=== PATIENT | female | born 1960 | race African-American/Black ===

== ENCOUNTER 2016-05-27 11:26 | Emergency (ER) | payer MEDICAID ==
[~2016-05-27] VITALS: Ht 172.7 cm; Wt 84.4 kg
[2016-05-27 11:26] VITALS: BP 140/90; PULSE 98; RESP 18; TEMP 98.2; O2SAT 98
--- NOTE | 2016-05-27 11:55 | NUR ---
Pt brought by ambulance from [facility], pt c/o generalized itching and pain due to bedbugs, pt was treated this morning with benadryl with no success, skin pink and warm,bites noted, ambulatory.
--- NOTE | 2016-05-27 12:30 | NUR ---
Pt report received from MARIA ISABEL Lynn. Pt c/o bed bug bites. Bites noted in small clusters generalized to all extremities. No bugs visible on skin. No drainage to sites.
--- NOTE | 2016-05-27 12:35 | NUR ---
Dr. Lind at bedside to assess pt.
[2016-05-27] MEDS ORDERED: OXYCODONE/ACETAMINOPHEN 5-325 TABLET PO ONE (13:30)
--- NOTE | 2016-05-27 13:30 | NUR ---
Attempted to call Ms. Khan at [facility], number provided by pt ([phone].) No answer. Left ER call back number. Pt informed.
--- NOTE | 2016-05-27 14:00 | NUR ---
Attempted to call Ms. Khan at [facility], number provided by pt ([phone].) No answer. Left ER call back number. Pt informed.
--- NOTE | 2016-05-27 14:15 | NUR ---
Dr. Lind on phone with Ms. Khan, admissions director of [facility]. Per conversation, facility is infested with bed bugs. Pt states that she doesn't want to go back there.
[2016-05-27] MEDS ORDERED: LORazepam 1 MG TABLET PO ONE (14:45)
--- NOTE | 2016-05-27 14:47 | NUR ---
Research Attorney at bedside to speak with pt.
--- NOTE | 2016-05-27 15:06 | NUR ---
Pt to be provided with taxi voucher. Pt states she wants to return to [facility] to get her belongings, but not to stay there.
[2016-05-27 15:15] VITALS: BP 138/88; PULSE 90; RESP 18; TEMP 98.2; O2SAT 98
--- NOTE | 2016-05-27 15:15 | NUR ---
Patient given written and verbal discharge instructions and verbalizes understanding. ER MD discussed with patient the results and treatment provided. Patient in stable condition. ID arm band removed. Rx of hydroxyzine pamoate and permethrine 5% cream given. Patient educated on pain management and to follow up with PMD. Pain Scale 0/10. Opportunity for questions provided and answered.
--- NOTE | 2016-05-27 15:24 | NUR ---
Social Service Note: RIM TECHNICIAN met with pt at bedside; pt states that she arrived at the [facility] a few days ago stay there as an employee; pt states that she was going to live there rent free to be an employee. Pt states that the owners did not tell her they were infested with bed bugs. Pt states that this is her second ER visit today for treatment. RIM TECHNICIAN spoke with pt about alternative discharge options; pt states that her belongings are at the facility. Pt states that she wants to make a few phone calls to figure things out. 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 RIM TECHNICIAN has obtained a taxi voucher for pt to return to the [facility]. [facility] provided taxi voucher to charge nurse. [facility] has provided pt with homeless assistance packet, food [place], and transportation resources. RIM TECHNICIAN will remain available for support and will follow up if needs arise.
== END 2016-05-27 15:15 | disposition home or self-care (01) ==
LOC: SED 11:26
DX: S80.861A Insect bite (nonvenomous), right lower leg, initial encounter (principal); Z88.0 Allergy status to penicillin; Z88.5 Allergy status to narcotic agent; Z88.8 Allergy status to other drugs, medicaments and biological substances; W57.XXXA Bitten or stung by nonvenomous insect and other nonvenomous arthropods, initial encounter; Y93.89 Activity, other specified; Y92.89 Other specified places as the place of occurrence of the external cause; Y99.8 Other external cause status
CPT/HCPCS: 99284